=== PATIENT | female | born 1980 | race Two or more races ===

== ENCOUNTER 2022-12-12 16:46 | Emergency (ER) | payer OTHER ==
[~2022-12-12] VITALS: Ht 157.5 cm; Wt 90.7 kg
[2022-12-12] MEDS ORDERED: CLARINEX-D 121 EACH PO (16:58)
[2022-12-12 18:29] LABS: PH,URINE 5.5 (5.0-8.0); URINE APPEARANCE Cloudy; URINE BILIRRUBIN Negative (NEGATIVE); URINE BLOOD Large; URINE COLOR Yellow; URINE GLUCOSE Negative (NEGATIVE); URINE LEUKOCYTE Moderate; URINE NITRATE Negative; URINE PROTEIN Trace (NEGATIVE); URINE UROBILINOGEN 0.2 E.U./dl
[2022-12-12 18:32] LABS: URINE BACTERIA 1387.2 uL (0.0-1933); URINE EPITHELIAL CELLS 20.4 uL (0.0-38.8); URINE RBC 86.9 uL (0.0-20.8)
[2022-12-12 18:32] LABS: HEMATOCRIT 33.2 % (36.0-45.00); HEMOGLOBIN 10.3 g/dL (12.0-15.00); MEAN CELL VOLUME 76.4 fL (80.00-100.00); MEAN CORPUSCULAR HEMOGLOBIN 23.8 pg (27.00-32.0); MEAN CORPUSCULAR HGB CONC 31.2 g/dl (32.0-36.0); PLATELET COUNT 304 K/uL (150-450); RED BLOOD COUNT 4.34 M/uL (4.00-6.00); RED CELL DISTRIBUTION WIDTH 15.4 % (11.5-14.5)
[2022-12-12 18:51] LABS: CALCIUM 8.8 mg/dL (8.5-10.1); CREATININE SERUM 0.83 mg/dL (0.55-1.02); GFR 75.76; POTASSIUM 3.61 mEq/L (3.5-5.1)
[2022-12-13] MEDS ORDERED: PRENA1 TRUE CO1 EACH PO (07:13)
[2022-12-13] MEDS ORDERED: ENDOMETRIN100 MG VAG (07:13)
== END 2022-12-13 07:27 ==
LOC: ER 16:46
PROVIDERS: Emergency Medicine
DX: O20.9 Hemorrhage in early pregnancy, unspecified (principal)

== ENCOUNTER 2024-04-09 09:31 | Outpatient (CLI) | payer OTHER ==
[~2024-04-09 09:31] MED LIST: CLARINEX-D 121 EACH PO; ENDOMETRIN100 MG VAG; PRENA1 TRUE CO1 EACH PO
== END 2024-04-09 09:39 | disposition home or self-care (01) ==
LOC: TOM 09:31
PROVIDERS: ATTEND Obstetrics & Gynecology Reproductive Endocrinology
DX: N70.11 Chronic salpingitis (principal)